=== PATIENT | male | born 1980 | race Two or more races ===

== ENCOUNTER 2024-10-31 13:56 | Emergency (ER) | payer OTHER ==
[~2024-10-31] VITALS: Ht 182.9 cm; Wt 83.9 kg
[~2024-10-31 13:56] MED LIST: AMOX1TAB12 PO; ANTIBIOTIC EAR OT
[2024-10-31] MEDS ORDERED: [UNRECOGNIZED DRUG - CODE] PO (16:25)
[2024-10-31 16:35] VITALS: BP 130/80; O2SAT 99
== END 2024-10-31 16:36 | disposition home or self-care (01) ==
LOC: ER 13:58
DX: U07.1 COVID-19 (principal); Z88.0 Allergy status to penicillin